=== PATIENT | female | born 1970 | race African-American/Black ===

== ENCOUNTER 2017-11-07 11:08 | Emergency (ER) | payer SELFPAY ==
[~2017-11-07] VITALS: Ht 149.9 cm; Wt 88.7 kg
[~2017-11-07 11:08] MED LIST: AMLO5TAB22 PO; LISI-363 PO; METO50TA PO
[2017-11-07 11:12] VITALS: BP 171/108; PULSE 93; RESP 18; TEMP 98.6; O2SAT 97
[2017-11-07] MEDS ORDERED: LISI40TA PO ×2 (11:27→13:32)
--- NOTE | 2017-11-07 11:28 | PD ---
HPI Chief Complaint: Chest Pain Time Seen by Provider: 11:16 Travel History International Travel<30 days: No Contact w/Intl Traveler<30days: No Traveled to known affect area: No History of Present Illness HPI This 46-year-old female says she been having some chest pain. She has been having pain since Sunday. She says been fairly constant since then Dr. Flowers does get worse at times. The right-sided pain. She describes it as a burning type of pain. It sometimes goes down the right arm. Does not go away completely. She has not been short of breath. She does smoke and she has a history of hypertension. She had been on lisinopril up until October of this year. In October she lost her insurance and she has not had lisinopril signs. She has no history of heart disease. She was evaluated in the chest pain in December 2015 with negative findings at that time. The pain she was having then was similar to the pain she is having now. The pain does not appear related to exertion. She has not noted a connection to eating. She has not been short of breath or diaphoretic. PFSH Past Medical History Heart Rhythm Problems: No Cancer: No Cardiac Catheterization: No Cardiovascular Problems: Yes High Cholesterol: No Congestive Heart Failure: No Diabetes: No Diminished Hearing: No Endocrine: No Genitourinary: No Hepatitis: No Hiatal Hernia: No Hypertension: Yes Immune Disorder: No Musculoskeletal: No Neurologic: No Psychiatric: No Reproductive: Yes Respiratory: No Thyroid Disease: No ?: Not LMP: 11/05/17 : 4 Para: 4 Miscarriage: 1 Tubal Ligation: Yes (WITH OVARY REMOVAL) Past Surgical History Section: Yes (X 1) Coronary Artery Bypass Graft: No Gynecologic Surgery: Yes () Pacemaker: No Other Surgery: Yes Social History Alcohol Use: Yes (OCCASIONAL) Tobacco Use: Yes (06/14 ppd) Substance Use: No Allergies-Medications (Allergen,Severity, Reaction): Coded Allergies: codeine (Unverified Allergy, Severe, HIVES, 11/07/17) Reported Meds & Prescriptions Reported Meds & Active Scripts Active Omeprazole 20 Mg Tab 20 Mg PO DAILY Lisinopril 40 Mg Tab 40 Mg PO DAILY Reported Lisinopril 40 Mg Tab 40 Mg PO DAILY Review of Systems General / Constitutional: No: Fever, Chills Eyes: No: Diploplia, Blurred Vision HENT: No: Headaches, Vertigo Cardiovascular: Positive: Chest Pain or Discomfort, No: Palpitations, Irregular Rhythm Respiratory: No: Cough, Shortness of Breath Gastrointestinal: No: Vomiting, Diarrhea Genitourinary: No: Frequency, Dysuria Musculoskeletal: No: Myalgias Skin: No Rash Neurologic: No: Weakness, Dizziness Psychiatric: No: Anxiety Hematologic/Lymphatic: No: Easy Bruising Physical Exam Narrative GENERAL: Well-developed female. Blood pressure on arrival is 170/108 SKIN: Focused skin assessment warm/dry. HEAD: Atraumatic. Normocephalic. EYES: Pupils equal and round. No scleral icterus. No injection or drainage. ENT: No nasal bleeding or discharge. Mucous membranes pink and moist. NECK: Trachea midline. No JVD. CARDIOVASCULAR: Regular rate and rhythm. No murmur appreciated. RESPIRATORY: No accessory muscle use. Clear to auscultation. Breath sounds equal bilaterally. GASTROINTESTINAL: Abdomen soft, non-tender, nondistended. Hepatic and splenic margins not palpable. MUSCULOSKELETAL: No obvious deformities. No clubbing. No cyanosis. No edema. NEUROLOGICAL: Awake and alert. No obvious cranial nerve deficits. Motor grossly within normal limits. Normal speech. PSYCHIATRIC: Appropriate mood and affect; insight and judgment normal. Data Data Last Documented VS Vital Signs Date Time Temp Pulse Resp B/P (MAP) Pulse Ox O2 Delivery O2 Flow Rate FiO2 11/07/17 12:10 79 16 175/83 (113) 99 Room Air 11/07/17 11:12 98.6 Orders Orders Electrocardiogram (11/07/17 11:25) Complete Blood Count With Diff (11/07/17 11:25) Comprehensive Metabolic Panel (11/07/17 11:25) Troponin I (11/07/17 11:25) Lipase (11/07/17 11:25) Chest, Single Ap (11/07/17 11:25) Al-Mag Hy-Si 40-40-4 Mg/Ml Liq (Mag-Al P (11/07/17 11:30) Lisinopril (Prinivil) (11/07/17 11:30) I-Stat Profile (11/07/17 11:30) Labs Laboratory Tests Test 11/07/17 11:30 White Blood Count 9.1 TH/MM3 Red Blood Count 4.32 MIL/MM3 Hemoglobin 12.5 GM/DL Hematocrit 37.2 % Mean Corpuscular Volume 86.1 FL Mean Corpuscular Hemoglobin 28.9 PG Mean Corpuscular Hemoglobin Concent 33.6 % Red Cell Distribution Width 14.0 % Platelet Count 287 TH/MM3 Mean Platelet Volume 8.5 FL Neutrophils (%) (Auto) 56.5 % Lymphocytes (%) (Auto) 34.9 % Monocytes (%) (Auto) 5.8 % Eosinophils (%) (Auto) 1.2 % Basophils (%) (Auto) 1.6 % Neutrophils # (Auto) 5.2 TH/MM3 Lymphocytes # (Auto) 3.2 TH/MM3 Monocytes # (Auto) 0.5 TH/MM3 Eosinophils # (Auto) 0.1 TH/MM3 Basophils # (Auto) 0.1 TH/MM3 CBC Comment DIFF FINAL Differential Comment Bedside Sodium 139 MMOL/L Blood Urea Nitrogen 6 MG/DL Creatinine 0.68 MG/DL Random Glucose 89 MG/DL Total Protein 7.0 GM/DL Albumin 2.7 GM/DL Calcium Level 8.6 MG/DL Alkaline Phosphatase 83 U/L Aspartate Amino Transf (AST/SGOT) 13 U/L Alanine Aminotransferase (ALT/SGPT) 11 U/L Total Bilirubin 0.4 MG/DL Sodium Level 143 MEQ/L Potassium Level 4.0 MEQ/L Chloride Level 109 MEQ/L Carbon Dioxide Level 22.2 MEQ/L Bedside Potassium 4.0 MMOL/L Bedside Chloride 106 MMOL/L Anion Gap 12 MEQ/L Bedside Blood Urea Nitrogen 5 MG/DL Bedside Creatinine 0.7 MG/DL Estimat Glomerular Filtration Rate 113 ML/MIN Bedside Glucose 93 MG/DL Troponin I LESS THAN 0.02 NG/ML Lipase 184 U/L [facility] Medical Decision Making Medical Screen Exam Complete: Yes Emergency Medical Condition: Yes Medical Record Reviewed: Yes Differential Diagnosis Differential includes atypical chest pain, coronary artery disease, GERD, Narrative Course Chest x-ray shows enlarged heart similar to previous x-rays. She does have a history of hypertension which could explain this. EKG shows normal sinus rhythm. Troponin negative. Patient has had similar pain in the past and was evaluated in the chest pain center with negative outcome. I am suspicious this may represent GERD. I will give her a trial of Prilosec. I am also going to reinstitute her lisinopril. She is to return if increasing pain Diagnosis Primary Impression: Hypertension Scripts Omeprazole (Omeprazole) 20 Mg Tab 20 MG PO DAILY, #30 TAB 0 Refills Prov: Travis Holbrook MD 11/07/17 Lisinopril (Lisinopril) 40 Mg Tab 40 MG PO DAILY for Blood Pressure Management, #30 TAB 0 Refills Prov: Travis Holbrook MD 11/07/17 Disposition: 01 DISCHARGE HOME Condition: Stable Travis Holbrook MD November 07, 2017 11:28
[2017-11-07] MEDS ORDERED: LISINOPRIL 20 MG TAB PO SCH (11:30)
[2017-11-07] MEDS ORDERED: ALUMINUM/MAGNESIUM/SIMETH 30 ML CUP PO ONE (11:30)
[2017-11-07 11:58] LABS: AUTOMATED NEUTROPHIL # 5.2 TH/MM3 (1.8-7.7); BASOPHIL # 0.1 TH/MM3 (0-0.2); BASOPHIL % 1.6 % (0.0-2.0); EOSINOPHIL # 0.1 TH/MM3 (0-0.4); EOSINOPHIL % 1.2 % (0.0-4.0); HEMATOCRIT 37.2 % (35.0-46.0); HEMOGLOBIN 12.5 GM/DL (11.6-15.3); LYMPH % 34.9 % (9.0-44.0); LYMPHOCYTE # 3.2 TH/MM3 (1.0-4.8); MEAN CELL VOLUME 86.1 FL (80.0-100.0); MEAN CORPUSCULAR HEMOGLOBIN 28.9 PG (27.0-34.0); MEAN CORPUSCULAR HGB CONC 33.6 % (32.0-36.0); MEAN PLATELET VOLUME 8.5 FL (7.0-11.0); MONO % 5.8 % (0.0-8.0); MONOCYTE # 0.5 TH/MM3 (0-0.9); NEUT % 56.5 % (16.0-70.0); PLATELET COUNT 287 TH/MM3 (150-450); RED BLOOD COUNT 4.32 MIL/MM3 (4.00-5.30); WHITE BLOOD COUNT 9.1 TH/MM3 (4.0-11.0)
[2017-11-07 12:10] VITALS: BP 175/83; PULSE 79; RESP 16; O2SAT 99
--- NOTE | 2017-11-07 12:28 | RADRPT ---
EXAM DATE: 11/07/2017 12:14 PM EDT AGE/SEX: 46 years / Female INDICATIONS: Chest pain CLINICAL DATA: This is the patient's initial encounter. Patient reports that signs and symptoms have been present for 1 day and indicates a pain score of 6/10. MEDICAL/SURGICAL HISTORY: Hypertension. None. COMPARISON: No prior exams available for comparison. FINDINGS: There is minimal basilar atelectasis. No consolidation. No effusion. Heart size is enlarged. No pneum othorax. CONCLUSION: Cardiomegaly with minimal basilar atelectasis. Electronically signed by: Stevie Perkins MD 11/07/2017 12:27 PM EDT
[2017-11-07] MEDS ORDERED: OMEP20TA93 PO (13:32)
--- NOTE | 2017-11-07 13:49 | EKG ---
Date Performed: 11/07/2017 Time Performed: 11:22:39 PTAGE: 46 years EKG: Sinus rhythm MODERATE VOLTAGE CRITERIA FOR LVH, CONSIDER NORMAL VARIANT BORDERLINE ECG PREVIOUS TRACING : 01/09/2016 15.23 DOCTOR: Gerardo Bailey Interpretating Date/Time 11/07/2017 13:48:42
[2017-11-07 13:52] LABS: ALBUMIN 2.7 GM/DL (3.4-5.0); AST (GOT) 13 U/L (15-37); BICARBONATE 22.2 MEQ/L (21.0-32.0); BLOOD UREA NITROGEN 6 MG/DL (7-18); CALCIUM 8.6 MG/DL (8.5-10.1); CHLORIDE 109 MEQ/L (98-107); CREATININE 0.68 MG/DL (0.50-1.00); GLOMERULAR FILTRATION RATE 113 ML/MIN (>89); GLUCOSE,RANDOM 89 MG/DL (74-106); SODIUM (NA) 143 MEQ/L (136-145)
[2017-11-07 13:55] LABS: ALKALINE PHOSPHATASE 83 U/L (45-117); ALT (GPT) 11 U/L (10-53); TOTAL BILIRUBIN ADULT 0.4 MG/DL (0.2-1.0); TROPONIN I LESS THAN 0.02 NG/ML (0.02-0.05)
[2017-11-07 14:10] VITALS: BP 185/88; PULSE 95; RESP 18; O2SAT 93
== END 2017-11-07 14:10 | disposition home or self-care (01) ==
LOC: PHED 11:08
DX: I10 Essential (primary) hypertension (principal); R07.9 Chest pain, unspecified; I51.7 Cardiomegaly; J98.11 Atelectasis; F17.200 Nicotine dependence, unspecified, uncomplicated; Z88.5 Allergy status to narcotic agent; Z79.899 Other long term (current) drug therapy
CPT/HCPCS: 71045; 80048; 80053; 83690; 84484; 85025; 93005; 99285